=== PATIENT | female | born 1960 | race African-American/Black ===

== ENCOUNTER 2024-05-24 13:00 | Emergency (ER) | payer OTHER ==
[~2024-05-24] VITALS: Ht 165.1 cm; Wt 68.0 kg
[2024-05-24 13:02] VITALS: TEMP 98.4; O2SAT 100
[2024-05-24 13:57] LABS: BASOPHILS % 0.6 % (0.0-2.0); EOSINOPHILS % 2.5 % (0.0-5.0); HEMATOCRIT. 39.7 % (36.0-48.0); HEMOGLOBIN. 13.2 g/dL (12.0-16.0); MEAN CORPUSCULAR HGB CONC 33.3 g/dL (31.0-37.0); MEAN CORPUSCULAR VOLUME 90.2 fL (81.0-99.0); MEAN PLATELET VOLUME 7.7 fl (7.4-10.4); MONOCYTES % 7.1 % (2.0-8.0); NEUTROPHILS % 57.8 % (40.0-76.0); PLATELET 241 x1000/uL (130-400); RED CELL DISTRIBUTION WIDTH 13.9 % (11.6-14.6)
[2024-05-24] MEDS: KETOROLAC 30MG/ML VIAL IM ONE (14:07)
[2024-05-24] MEDS: DIAZEPAM 5 MG/ML 2ML SYR IM ONE (14:08)
[2024-05-24] MEDS: CYCLOBENZAPRINE 10MG TABLET PO ONE (14:08)
[2024-05-24 14:11] LABS: CHLORIDE 106 mEq/L (98-107); POTASSIUM 3.4 mEq/L (3.5-5.1); SODIUM 140 mEq/L (136-145)
[2024-05-24 14:12] LABS: CARBON DIOXIDE 26 mEq/L (21-32)
[2024-05-24 14:13] LABS: CALCIUM 10.1 mg/dL (8.7-10.4)
[2024-05-24 14:17] LABS: CREATININE 0.9 mg/dL (0.6-1.0); GLUCOSE 111 mg/dL (70-105); UREA NITROGEN BLOOD 18 mg/dL (9-23)
[2024-05-24 14:21] LABS: TROPONIN I HIGH SENSITIVITY < 4 ng/L (3.0-34)
[2024-05-24] MEDS ORDERED: CYCL10TA21 MT (14:34)
[2024-05-24 14:46] VITALS: BP 129/71; PULSE 85; RESP 16; O2SAT 98
== END 2024-05-24 14:55 | disposition home or self-care (01) ==
LOC: ER 13:00
DX: S16.1XXA Strain of muscle, fascia and tendon at neck level, initial encounter (principal); M25.511 Pain in right shoulder; R06.02 Shortness of breath; Z86.73 Personal history of transient ischemic attack (TIA), and cerebral infarction without residual deficits; X58.XXXA Exposure to other specified factors, initial encounter; Y93.89 Activity, other specified; Y92.89 Other specified places as the place of occurrence of the external cause; Y99.8 Other external cause status
CPT/HCPCS: 99285; 71045; 80048; 83880; 85025; 84484; 36415; 93005; 96372; J1885